=== PATIENT | female | born 1990 ===

== ENCOUNTER 2023-08-08 22:32 | Emergency (ER) | payer SELFPAY ==
[~2023-08-08] VITALS: Ht 165.1 cm; Wt 115.0 kg
[2023-08-08 23:30] VITALS: TEMP 98.4
[2023-08-09] MEDS ORDERED: ALBU18HF12 IH (00:26)
[2023-08-09] MEDS ORDERED: AZIT-104 PO (00:26)
[2023-08-09 00:36] VITALS: BP 132/76; PULSE 83; RESP 18
== END 2023-08-09 00:38 | disposition home or self-care (01) ==
LOC: EMS 22:35
DX: J20.9 Acute bronchitis, unspecified (principal); F12.90 Cannabis use, unspecified, uncomplicated; Z87.891 Personal history of nicotine dependence
CPT/HCPCS: 71045; 99283